=== PATIENT | male | born 1960 | race American Indian/Alaskan Native ===

== ENCOUNTER 2018-04-25 23:23 | Emergency (ER) | payer SELFPAY ==
[2018-04-26 01:25] LABS: Basophils % (Auto) 0.5 % (0.0-1.8); Eosinophils # (Auto) 0.1 K/mm3 (0.0-0.4); Eosinophils % (Auto) 1.6 % (0.0-4.3); Hemoglobin 12.7 gm/dl (11.8-15.2); Lymphocytes # (Auto) 1.2 K/mm3 (1.2-5.4); Lymphocytes % (Auto) 25.2 % (13.4-35.0); Mean Corpuscular HGB Conc 33 % (32-34); Mean Corpuscular Hemoglobin 30 pg (28-32); Mean Corpuscular Volume 91 fl (84-94); Monocytes # (Auto) 0.4 K/mm3 (0.0-0.8); Monocytes % (Auto) 8.6 % (0.0-7.3); Platelet Count 190 K/mm3 (140-440); Red Blood Count 4.16 M/mm3 (3.65-5.03); Red Cell Distribution Width 14.2 % (13.2-15.2)
[2018-04-26 01:35] LABS: BUN/Creatinine Ratio 12; Blood Urea Nitrogen 12 mg/dL (9-20); Hemolysis Index 29
[2018-04-26 05:11] LABS: Bilirubin,Urine NEG (Negative); Blood,Urine NEG (Negative); Color,Urine Yellow (Yellow); Mucus,Urine FEW /HPF; Protein,Urine <15 mg/dL mg/dL (Negative)
[2018-04-26 05:18] LABS: Amphetamine Screen,Urine PRESUMPTIVE NEGATIVE; Benzodiazepines Screen,Urine PRESUMPTIVE NEGATIVE; Cannabinoid Screen,Urine PRESUMPTIVE NEGATIVE; Cocaine Screen,Urine PRESUMPTIVE NEGATIVE; Methadone Screen,Urine PRESUMPTIVE NEGATIVE; Opiate Screen,Urine PRESUMPTIVE NEGATIVE
--- NOTE | 2018-04-26 06:44 | Emergency Department Report ---
ED Psych HPI - General Chief Complaint: Psych Stated Complaint: NERVOUSNESS Time Seen by Provider: 04/26/18 06:35 Source: patient Mode of arrival: Ambulatory - History of Present Illness Initial Comments: Patient is a 58-year-old male that presents emergency room with complaints of suicidal and homicidal ideations with a plan to cut his wrist. Patient states she's having audiovisual hallucinations. Patient states the voices are telling him to cut himself and kill himself. Patient denies any physical complaints. Patient denies pain. Patient denies chest pain shortness of breath. Patient denies headache. MD Complaint: suicidal ideation, feels depressed -: Sudden Associated Psychiatric Symptoms: depression, suicidal ideation, racing thoughts , auditory hallucinations, visual hallucinations History of same: Yes Quality: constant Improves With: none Worsens With: none Context: significant life stressor Associated Symptoms: denies: confusion, headache, shortness of breath, nausea, vomiting, syncope, insomnia Treatments Prior to Arrival: placed on mental he If Self Harm: admits thoughts of, has plan - Related Data Home Medications Medication Instructions Recorded Confirmed Last Taken No Known Home Medications [No 04/26/18 04/26/18 Unknown Reported Home Medications] Allergies Allergy/AdvReac Type Severity Reaction Status Date / Time aspirin Allergy Unknown Verified 04/26/18 00:35 fluphenazine [From Prolixin] Allergy Unknown Verified 04/26/18 00:37 haloperidol [From Haldol] Allergy Vomiting Verified 04/26/18 00:35 ibuprofen Allergy Unknown Verified 04/26/18 00:35 Penicillins Allergy Unknown Verified 04/26/18 00:35 ranitidine [From Zantac] Allergy Unknown Verified 04/26/18 00:35 Tetanus Vaccines and Toxoid Allergy Unknown Verified 04/26/18 00:46 thiothixene [From Navane] Allergy Unknown Verified 04/26/18 00:37 ziprasidone [From Geodon] Allergy Unknown Verified 04/26/18 00:35 ED Review of Systems ROS: Stated complaint: NERVOUSNESS Other details as noted in HPI Constitutional: denies: chills, fever Eyes: denies: eye pain, eye discharge, vision change ENT: denies: ear pain, throat pain Respiratory: denies: cough, shortness of breath, wheezing Cardiovascular: denies: chest pain, palpitations Endocrine: no symptoms reported Gastrointestinal: denies: abdominal pain, nausea, diarrhea Genitourinary: denies: urgency, dysuria Musculoskeletal: denies: back pain, joint swelling, arthralgia Skin: denies: rash, lesions Neurological: denies: headache, weakness, paresthesias Psychiatric: depression, auditory hallucinations, visual hallucinations, suicidal thoughts. denies: anxiety Hematological/Lymphatic: denies: easy bleeding, easy bruising ED Past Medical Hx - Past Medical History Previous Medical History?: Yes Hx Psychiatric Treatment: Yes (schizo) Hx Asthma: Yes - Surgical History Past Surgical History?: Yes Additional Surgical History: Head- when a child and left leg - Family History Family history: no significant - Social History Smoking Status: Never Smoker Substance Use Type: None - Medications Home Medications: Home Medications Medication Instructions Recorded Confirmed Last Taken Type No Known Home Medications [No 04/26/18 04/26/18 Unknown History Reported Home Medications] ED Physical Exam - General Limitations: Altered Mental Status General appearance: alert, in no apparent distress - Head Head exam: Present: atraumatic, normocephalic - Eye Eye exam: Present: normal appearance - ENT ENT exam: Present: mucous membranes moist - Neck Neck exam: Present: normal inspection - Respiratory Respiratory exam: Present: normal lung sounds bilaterally. Absent: respiratory distress - Cardiovascular Cardiovascular Exam: Present: regular rate, normal rhythm. Absent: systolic murmur, diastolic murmur, rubs, gallop - GI/Abdominal GI/Abdominal exam: Present: soft, normal bowel sounds - Rectal Rectal exam: Present: deferred - Extremities Exam Extremities exam: Present: normal inspection - Back Exam Back exam: Present: normal inspection - Neurological Exam Neurological exam: Present: alert, oriented X3 - Psychiatric Psychiatric exam: Present: suicidal ideation - Skin Skin exam: Present: warm, dry, intact, normal color. Absent: rash ED Course Vital Signs 04/26/18 04/26/18 00:38 09:27 Temperature 98.1 F 98.4 F Pulse Rate 79 59 L Respiratory 14 18 Rate Blood Pressure 119/75 Blood Pressure 98/56 [Left] O2 Sat by Pulse 98 94 Oximetry - Reevaluation(s) Reevaluation #1: Patient examined and placed on a 1013. Will also consult mental health for evaluation. Patient will remain on hold until accepted into a psychiatric facility 04/26/18 06:50 Patient is medically cleared at this time. Labs were reviewed and discussed with patient. Patient will remain on a 1013 and psychiatric hold until accepted into appropriate psychiatric facility 04/26/18 07:50 Patient is medically cleared and will remain on a 1013 until accepted into appropriate psychiatric facility. 04/26/18 15:07 ED Medical Decision Making - Lab Data Result diagrams: 04/26/18 00:59 04/26/18 00:59 - Medical Decision Making Patient is a 58-year-old male presents emergency room with complaints of suicidal ideation with the plan and audiovisual hallucinations. Patient states that he wants to cut himself. Patient was placed on a 1013 immediately and will remain on 1013 until accepted into a psychiatric facility. Patient's labs are unremarkable. Patient called patient's labs were reviewed with patient. Plan of care discussed with patient. Critical care attestation.: If time is entered above; I have spent that time in minutes in the direct care of this critically ill patient, excluding procedure time. ED Disposition Clinical Impression: Suicidal ideations, Hallucinations Disposition: [id number]/TX-65 PSY HOSP/PSY UNIT Is pt being admited?: No Does the pt Need Aspirin: No Condition: Stable Referrals: PRIMARY CARE, [Primary Care Provider] - 3-5 Days Time of Disposition: 15:08
[2018-04-26] MEDS ORDERED: TYLENOL PO ONE (12:51)
--- NOTE | 2018-04-26 14:56 | Progress Note ---
Subjective - Reason for Consult Consult date: 04/26/18 Reason for consult: Initial Psychiatric Medication Mental Status Exam - Vital signs Last Vital Signs Temp 98.4 F 04/26/18 09:27 Pulse 59 L 04/26/18 09:27 Resp 18 04/26/18 09:27 BP 98/56 04/26/18 09:27 Pulse Ox 94 04/26/18 09:27
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
[2018-04-27] MEDS ORDERED: LITHOBID ER PO SCH (01:00)
[2018-04-27 09:16] VITALS: BP 102/48
--- NOTE | 2018-04-27 13:02 | Progress Note ---
Subjective - Reason for Consult Consult date: 04/27/18 Reason for consult: Psychiatry Follow-up - Chief Complaint Chief complaint: "I am good' 58-year-old male that presents to the emergency room with complaints of suicidal and homicidal ideations with a plan to cut his wrist. Today the patient is cooperative during the assessment. He stated he is fine now and feel like he can be discharged. He was asked what brought him to the hospital, he could not elaborate. He was able to tell me he is seen by Davian Montano for outpatient psy services in [facility]. He denies SI/HI's and AVH's. He denies any side effects of his medications. Mental Status Exam - Vital signs Last Vital Signs Temp 97.8 F 04/27/18 09:09 Pulse 63 04/27/18 09:15 Resp 18 04/27/18 09:15 BP 102/48 04/27/18 09:15 Pulse Ox 96 04/27/18 09:15 - Exam Narrative exam: MSE: Appearance: calm, cooperative Behavior: regular eye contact Speech: regular rate and tone Mood: "okay" Affect: flat Thought Process: circumstantial Thought Content: denies SI/HI's and AVH's Motor Activity: ambulatory Cognition: A/O x 3 Insight: variable Judgment: variable Assessment and Plan Impression: Schizophrenia. Today the patient is calm during the assessment. UDS is negative. DDx: r/o Schizoaffective Disorder Recommendation/Plan: Reevaluate the 1013 in 24 hours to determine proper dispo. Continue home medications ([place], Depakote, and Zyprexa). Discussed possible metabolic side effects of Zyprexa with the patient.
[2018-04-27 13:42] LABS: Alanine Aminotransferase 6 units/L (7-56); Lipase 26 units/L (13-60)
[2018-04-27] MEDS ORDERED: LITHIUM 600 MG PO SCH (22:00)
[2018-04-27] MEDS ORDERED: DEPAKOTE 1000 MG PO SCH (22:00)
[2018-04-27] MEDS ORDERED: ZYPREXA 20 MG PO SCH (22:00)
== END 2018-04-27 18:36 ==
LOC: ED 23:23 → EEVIPCON 23:23 → ED 04-27 18:36
DX: F20.9 Schizophrenia, unspecified (principal); Z88.6 Allergy status to analgesic agent; Z88.0 Allergy status to penicillin; Z88.8 Allergy status to other drugs, medicaments and biological substances
CPT/HCPCS: 36415; 80048; 80164; 80178; 80307; 81001; 82150; 83690; 84075; 84450; 84460; 85025; 99285; G0480; 80320